=== PATIENT | female | born 1975 | race Asian ===

== ENCOUNTER 2018-08-01 16:11 | Emergency (ER) | payer OTHER ==
[~2018-08-01] VITALS: Ht 152.4 cm; Wt 64.0 kg
[~2018-08-01 16:11] MED LIST: ACET325T14; IBUP-1623
[2018-08-01] MEDS ORDERED: EPINEPHRINE 1 MG/ML, 1ML ONE (16:54)
[2018-08-01] MEDS ORDERED: DIPHENHYDRAMINE 50 MG/ML, 1ML ONE (16:54)
[2018-08-01] MEDS ORDERED: EPINEPHRINE 1 MG/ML, 1ML IM ONE (17:00)
[2018-08-01] MEDS ORDERED: DIPHENHYDRAMINE 50 MG/ML, 1ML IVPush ONE (17:00)
--- NOTE | 2018-08-01 17:34 | NUR ---
PT TO ED WITH HIVES/REDNESS/SWELLING GENERALIZED OVER BODY, MOSTLY TO ARMS AND BACK. PT IN [facility] YESTERDAY AND GIVEN BENADRYL AND STEROIDS "I THINK" BUT PT STILL HAVING SEVERE ITCHING AND SAYS "I CAN FEEL IT IN MY THROAT". PT PLACED ON MONITOR, VSS ON RA. FAMILY AT BEDSIDE
--- NOTE | 2018-08-01 18:00 | NUR ---
PT SLEEPING IN GURNEY WITH FAMILY AT BEDSIDE, EQUAL CHEST RISE AND FALL. RASH STILL SIMILAR IN APPEARANCE TO BEFORE
[2018-08-01 18:28] VITALS: BP 113/69
== END 2018-08-01 19:08 | disposition home or self-care (01) ==
LOC: ED 16:45
DX: L50.0 Allergic urticaria (principal)
CPT/HCPCS: 93005; 96372; 96374; 99283; J0171; J1200

== ENCOUNTER → 2020-07-04 | Outpatient (CLI) | payer OTHER ==
[~2020-07-04] MED LIST changes: +allergy med PO
[2020-07-04 14:07] LABS: MICROSCOPIC AUTO
[2020-07-04 14:10] LABS: BASOPHILS % (AUTO) 1 % (0-1); EOSINOPHILS % (AUTO) 2 % (1-7); LYMPHOCYTES % (AUTO) 27 % (22-44); MEAN CORPUSCULAR HEMOGLOBIN 31.6 pg (27.0-34.8); MEAN CORPUSCULAR HGB CONC 33.9 g/dL (32.4-35.8); MONOCYTES % (AUTO) 5 % (2-9); NEUTROPHILS % (AUTO) 66 % (42-75); PLATELET COUNT 283 x10^3/uL (130-400); RED BLOOD COUNT 4.41 x10^6/uL (3.82-5.3); RED CELL DISTRIBUTION WIDTH 12.8 % (9.6-15.2)
[2020-07-04 14:12] LABS: ALANINE AMINOTRANSFERASE 30 U/L (12-78); ALBUMIN 3.6 g/dL (3.4-5.0); ANION GAP 5 mmol/L (5-15); CALCIUM 8.5 mg/dL (8.5-10.1); CHLORIDE 108 mmol/L (98-107); CREATININE 0.88 mg/dL (0.55-1.02)
[2020-07-04 14:17] LABS: ALKALINE PHOSPHATASE 62 U/L (45-117); BILIRUBIN,TOTAL 0.2 mg/dL (0.2-1.0); TOTAL PROTEIN 7.3 g/dL (6.4-8.2)
[2020-07-04 14:18] LABS: MD NO
== END | disposition home or self-care (01) ==
LOC: STAR 12:34
PROVIDERS: ATTEND Obstetrics & Gynecology Gynecology
DX: Z01.812 Encounter for preprocedural laboratory examination (principal); Z20.822 Contact with and (suspected) exposure to COVID-19; D39.11 Neoplasm of uncertain behavior of right ovary
CPT/HCPCS: 36415; 80053; 81001; 84703; 85025; U0003

== ENCOUNTER 2020-07-08 07:04 | Day surgery (SDC) | payer OTHER ==
[~2020-07-08] VITALS: Ht 152.4 cm; Wt 66.5 kg
[2020-07-08 07:51] VITALS: BP 120/82
[2020-07-08] MEDS ORDERED: CHLORHEXIDINE 15 ML UDC ONE (07:54)
[2020-07-08] MEDS ORDERED: MIDAZOLAM 1 MG/ML, 2ML ONE (07:54)
[2020-07-08] MEDS ORDERED: FENTANYL PF 250 MCG/5ML ONE (07:54)
[2020-07-08] MEDS ORDERED: CHLORHEXIDINE 15 ML UDC PO ONE (08:00)
[2020-07-08] MEDS ORDERED: LACTATED RINGERS 1,000 ML IV SCH (08:00)
[2020-07-08 08:19] LABS: HCG UR SG 1.026 (1.003-1.030)
[2020-07-08] MEDS ORDERED: LIDOCAINE/MPF 2%-EPI 1:200K, 20 ML ONE (08:47)
[2020-07-08] MEDS ORDERED: DEXAMETHASONE 4 MG/ML, 1ML ONE (08:52)
[2020-07-08] MEDS ORDERED: CEFAZOLIN 1,000 MG ONE (09:02)
[2020-07-08] MEDS ORDERED: PROPOFOL 10 MG/ML, 20ML ONE (09:04)
[2020-07-08] MEDS ORDERED: KETOROLAC 30 MG/1 ML ONE (09:40)
[2020-07-08] MEDS ORDERED: ROCURONIUM 10MG/ML,5ML ONE (09:40)
[2020-07-08] MEDS ORDERED: ONDANSETRON 2MG/ML, 2ML ONE (09:40)
[2020-07-08] MEDS ORDERED: GLYCOPYRROLATE 0.2MG/1ML, 5ML ONE (09:42)
[2020-07-08] MEDS ORDERED: NEOSTIGMINE 1 MG/ML, 10ML ONE (09:42)
[2020-07-08] MEDS ORDERED: LABETALOL 5MG/ML, 20ML IV PRN (10:00)
[2020-07-08] MEDS ORDERED: PROMETHAZINE 25 MG/ML, 1ML IVPush PRN (10:00)
[2020-07-08] MEDS ORDERED: MEPERIDINE/PF 25MG/0.5ML IVPush PRN (10:00)
[2020-07-08] MEDS ORDERED: ONDANSETRON 2MG/ML, 2ML IVPush PRN (10:00)
[2020-07-08] MEDS ORDERED: hydrALAzine 20 MG/ML, 1ML IV PRN (10:00)
[2020-07-08] MEDS ORDERED: HYDROcodone/APAP 7.5-325MG/15ML UDC PO PRN (10:00)
[2020-07-08] MEDS ORDERED: HYDROmorphone 1 MG/ML, 1ML INJ IVPush PRN (10:00)
[2020-07-08] MEDS ORDERED: ACETAMINOPHEN 325 MG TABLET PO PRN (10:00)
[2020-07-08] MEDS ORDERED: HYDROcodone/APAP 7.5-325MG/15ML UDC ONE (10:16)
[2020-07-08] MEDS ORDERED: FENTANYL PF 100 MCG/2ML ONE (10:16)
[2020-07-08] MEDS: FENTANYL PF 100 MCG/2ML IV PRN ×2 (10:21→10:32)
== END 2020-07-08 13:00 | disposition home or self-care (01) ==
LOC: OUT 07:04
PROVIDERS: ATTEND Obstetrics & Gynecology Gynecology
DX: D27.0 Benign neoplasm of right ovary (principal); E78.00 Pure hypercholesterolemia, unspecified; E78.5 Hyperlipidemia, unspecified; Z88.8 Allergy status to other drugs, medicaments and biological substances; Z98.890 Other specified postprocedural states; Z79.899 Other long term (current) drug therapy; Z72.89 Other problems related to lifestyle; Z82.49 Family history of ischemic heart disease and other diseases of the circulatory system
CPT/HCPCS: 58661; 81025; 88112; 88305; J0690; J1100; J1885; J2250; J2405; J2704; J2710; J3010; J7120

== ENCOUNTER 2020-08-24 12:22 | Emergency (ER) | payer OTHER ==
[~2020-08-24] VITALS: Ht 149.9 cm; Wt 68.1 kg
--- NOTE | 2020-08-24 12:47 | NUR ---
PT AMBULATORY TO ROOM 6 W/ C/O RLQ ABD PAIN AFTER PT HAD OOPHERECTOMY R SIDE ON 07/08/2020. PT STATES SHE HAD POST-OP APPT W/ DR. KARIMI ON 07/14/2020. PT STATES SHE HAS SEEN HIM FOR POSITIVE UTI X 2. STATES SHE STILL HAS APPENDIX. PT RESTING ON GURNEY. NADN. MONITORS APPLIED. VSS. WARM BLANKET PROVIDED. CALL LIGHT IN REACH.
[2020-08-24] MEDS ORDERED: SODIUM CHLORIDE FLUSH 10ML SYR IVF ONE (13:30)
[2020-08-24 13:31] LABS: MICROSCOPIC NOT IND
--- NOTE | 2020-08-24 13:42 | NUR ---
PT RESTING ON GURNEY. NADN. NIELSON.
[2020-08-24 13:51] LABS: BASOPHILS % (AUTO) 1 % (0-1); EOSINOPHILS % (AUTO) 2 % (1-7); LYMPHOCYTES % (AUTO) 30 % (22-44); MEAN CORPUSCULAR HEMOGLOBIN 32.1 pg (27.0-34.8); MEAN CORPUSCULAR HGB CONC 34.5 g/dL (32.4-35.8); MEAN PLATELET VOLUME 8.7 fL (7.4-10.4); MONOCYTES % (AUTO) 4 % (2-9); NEUTROPHILS % (AUTO) 64 % (42-75); PLATELET COUNT 256 x10^3/uL (130-400); RED BLOOD COUNT 4.41 x10^6/uL (3.82-5.3); RED CELL DISTRIBUTION WIDTH 12.8 % (9.6-15.2)
--- NOTE | 2020-08-24 14:40 | NUR ---
PT RESTING ON [place]ERSON. VSS. AWARE OF NEED FOR BLOOD DRAW SINCE PT BLOOD HEMOLYZED IN LAB.
[2020-08-24 15:06] LABS: ALANINE AMINOTRANSFERASE 43 U/L (12-78); ALBUMIN 3.7 g/dL (3.4-5.0); ANION GAP 8 mmol/L (5-15); CHLORIDE 106 mmol/L (98-107); CREATININE 0.77 mg/dL (0.55-1.02)
[2020-08-24 15:09] LABS: ALKALINE PHOSPHATASE 73 U/L (45-117); BILIRUBIN,TOTAL 0.2 mg/dL (0.2-1.0); TOTAL PROTEIN 7.5 g/dL (6.4-8.2)
--- NOTE | 2020-08-24 15:29 | NUR ---
BREAK RN. IV STARTED. PT REMAINS ON MONITORS, VSS. AWAITING CT.
--- NOTE | 2020-08-24 16:14 | NUR ---
PT TAKEN TO CT IN STABLE CONDITION.
[2020-08-24] MEDS ORDERED: OMNIPAQUE 350 MG/ML, 100ML BOTTLE ONE (16:20)
--- NOTE | 2020-08-24 16:46 | NUR ---
PT CHART REVIEWED AND PLACED FOR RECHECK.
--- NOTE | 2020-08-24 17:41 | NUR ---
ERP DR. MOJICA AT BEDSIDE FOR RE-EVAL.
[2020-08-24 17:47] VITALS: BP 103/58
== END 2020-08-24 18:07 | disposition home or self-care (01) ==
LOC: ED 15:04
DX: R10.32 Left lower quadrant pain (principal); R11.10 Vomiting, unspecified; R42 Dizziness and giddiness; Z88.5 Allergy status to narcotic agent
CPT/HCPCS: 36415; 74177; 76830; 80053; 81003; 84703; 85025; 99285; Q9967